=== PATIENT | female | born 1985 | race Caucasian/White ===

== ENCOUNTER 2016-08-09 17:01 | Emergency (ER) | payer OTHER ==
[~2016-08-09] VITALS: Ht 160 cm; Wt 75.7 kg
[~2016-08-09 17:01] MED LIST: ALBU8.5H4 IH; CITA20TA PO; FES300 PO; PREN1TAB47 PO
[2016-08-09 17:03] VITALS: BP 120/83; PULSE 77; RESP 14; O2SAT 100
--- NOTE | 2016-08-09 17:22 | ED.REPORT ---
HPI-Preg Under 20 Weeks Date of Service Aug 09, 2016 ED Provider: Jai Dorman DO A 31 year old female with no pertinent medical history is referred to the ED from her PCP due to heavy vaginal bleeding and a concerning ultrasound. The pt had an ultrasound done today with her PCP, and radiologists reported that they could not exclude the possibility of an ectopic . ED evaluation was therefore recommended. The pt has been experiencing heavy menstrual periods for three to four months, requiring tampon changes every two hours, but this has worsened significantly in the last three days. The bleeding has reached the point that she is now changing her tampon every twenty minutes. Since these heavy periods began, she has also been experiencing lower abdominal pain with palpation. Her periods normally last for two weeks, but have been lasting for three to four weeks since the heavy bleeding began. She has been bleeding continuously since the beginning of 07/2016. Dr. Bhatia recently recommended control use as a method for menstrual control. The pt has been on control for one month without any decrease in her bleeding. Nursing Notes Stated Complaint: REFERRED BY ALIZACIAN Chief Complaint: & Delivery Nursing Notes Reviewed: Yes Allergies: Coded Allergies: No Known Allergies (Verified , 08/09/16) Scheduled Albuterol-Expunged Drug, Do Not Renew! (Albuterol-Expunged Drug, Do Not Renew!) 8.5 Gm Hfa.aer.ad 2 PUFFS IH PRN Citalopram-Expunged Drug, Do Not Renew! (Citalopram-Expunged Drug, Do Not Renew! ) 20 Mg Tablet 20 MG PO DAILY Ferrous Sulfate-Expunged Drug, Do Not Renew! (Feosol-Expunged Drug, Do Not Renew !) 325 Mg Tablet 325 ( PO DAILY Vit/Fe Fumarate/Fa-Expunged Drug, Do (-Expunged Drug, Do Not Renew!) 1 Tab Tablet 1 TAB PO DAILY General Time Seen by Provider: 17:21 Chief Complaint Vaginal bleeding Hx Obtained From: Patient Arrived By: Walk-in Onset Occurred: 4 days ago Symptom Duration: Since onset Recent Healthcare: No recent hospitalization, Recent doctor visit Similar Sx Previous: No Past Medical History Past Medical History none reported Past Surgical History none reported Smoking History Unknown if Ever Smoker Ambulatory Status Independent Review of Systems Constitutional: Denies: Fever Respiratory: Denies: Non-productive cough, Shortness of breath Cardiovascular: Denies: Chest pain GI: Reports: Abdominal pain, Denies: Vomiting Female: Reports: Vaginal bleeding - abnl Musculoskeletal: Denies: Back pain, Neck pain Skin: Denies Rash Complete sys rev & neg: except as marked. Physical Exam Initial Vital Signs Vital Signs (First) Date Time Temp Pulse Resp B/P Pulse Ox O2 Delivery O2 Flow Rate FiO2 08/09/16 17:03 36.3 77 14 120/83 100 Room Air Initial VS: Reviewed General/Constitutional: Awake, Alert Abdomen: Atraumatic, Soft mild tenderness of LLQ to palpation Female Genitourinary: Exam deferred : Exam deferred ENT: Atraumatic, Airway patent, Mucous membranes moist Respiratory / Chest: Atraumatic, Breath sounds NL, Breath sounds = bilat, No respiratory distress Cardiovascular: Heart rate NL, Regular rhythm, Heart sounds NL Back: Atraumatic, Full range of motion Neurologic: Oriented X3, Speech NL, No motor deficits, No sensory deficits Head / Eyes: Atraumatic, Normocephalic, PERRL, EOMI Neck: Atraumatic, Supple, Full range of motion Upper Extremity / MS: Atraumatic, Full range of motion Lower Extremity / Pelvis / MS: Atraumatic, Full range of motion Skin: Atraumatic, Color NL, No rash, Warm, Dry Psychiatric: Affect NL, Mood NL Interpretation & Diagnostics Lab Results Interpretation Result Diagram: 08/09/16 1735 Test 08/09/16 17:31 08/09/16 17:35 Hold Urine Received (Received) White Blood Count 7.4th/mm3 (3.8-10.1) Red Blood Count 3.88mil/mm3 (3.90-5.20) Hemoglobin 9.9g/dL (12.0-15.6) Hematocrit 32.8% (35.0-46.0) Mean Corpuscular Volume 84.5fL (81-100) Mean Corpuscular Hemoglobin 25.5pg (27.0-35.0) Mean Corpuscular Hemoglobin Concent 30.2% (32.0-37.0) Red Cell Distribution Width 22.4% (12.3-15.4) Platelet Count 428bil/L (150-400) HCG Beta Subunit < 0.500mIU/mL Re-Eval/Medical Decision Med Decision/Clinical Course Initial concern for ectopic however the patient has a nondetectable hCG level and the story is not consistent with ectopic whatsoever. She has chronic anemia and is on iron therapy. Vital signs were stable. Patient had 4 months of ongoing menometrorrhagia with minimal left lower quadrant pain and discussed her care with the on-call WATCH COMMANDER who agrees with beginning medroxyprogesterone and close outpatient follow-up. Return and follow-up precautions given. Source of Hx: Old records Re-Evaluation/Progress : Time of Eval: 17:44 Patient Status: Condition improved Re-Evaluation/Progress Note: Pt rechecked, who is comfortable. Treatment plan is further discussed. Consultation : Referral / Consult Name: Lei Melendez MD Call Returned at: 18:36 Note: Agrees with discharge, recommends medroxyprogesterone 10 mg every 8 hours, recommends following up in clinic in the next 2-3 days. Counseled Regarding: Diagnosis, Lab results, Need for follow-up, When/why to return to ED Discharge & Departure Shift Change Sign-Out Patient Care Transferred: Yes Discussed Complaint(s): Yes Laboratory Evaluation: Ordered, not yet done Imaging Studies: Ordered, not yet done Primary Impression: Menometrorrhagia Disposition: Home Discharge Condition All VS Reviewed: Yes Condition: Stable Additional Instructions: Use medroxyprogesterone 10 mg 3 times a day. Call your WATCH COMMANDER in the morning to have a follow-up appointment in the next few days. Return to ER if you develop severe lightheadedness, severe weakness, chest pain trouble breathing or any other concerns. Referrals: Saray Naranjo (PCP) Dustin Bhatia MD Attestation Portions of this note were transcribed by Regina Huggins. I, Dr. Dorman personally performed the history, physical exam and medical decision-making; I reviewed and confirmed the accuracy of the information in the transcribed note. Signed by: Vilma Stephenson, 08/09/16 and 1806. copies to: Dustin Bhatia MD; Saray Naranjo Timothy S DO Aug 09, 2016 17:22 REGINA HUGGINS Aug 09, 2016 17:30 Jai Dorman DO Aug 09, 2016 17:22 REGINA HUGGINS Aug 09, 2016 17:30
[2016-08-09 18:07] LABS: Mean Corpuscular Hemoglobin 25.5 pg (27.0-35.0); Mean Corpuscular Volume 84.5 fL (81-100)
[2016-08-09] MEDS ORDERED: MedroxyPROGESTERone 5 mg Tablet PO ONE (18:40)
[2016-08-09] MEDS ORDERED: MEDR10TA9 PO (18:49)
[2016-08-09] MEDS ORDERED: MedroxyPROGESTERone 150 mg/mL Inj IM ONE (18:50)
[2016-08-09 19:22] VITALS: BP 112/74; PULSE 78; RESP 16; O2SAT 98
[2016-09-14] MEDS ORDERED: LEVO1TAB7 PO (14:59)
[2016-09-14] MEDS ORDERED: ALBU6.7H INH (15:00)
== END 2016-08-09 19:23 | disposition home or self-care (01) ==
LOC: SED 17:01
DX: N92.1 Excessive and frequent menstruation with irregular cycle (principal); D64.9 Anemia, unspecified
CPT/HCPCS: 36415; 81025; 84702; 85027; 96372; 99284; J1050

== ENCOUNTER 2016-09-16 08:45 | Day surgery (SDC) | payer OTHER ==
[2016-09-16] VITALS (11 sets, daily range): BP systolic 108–131; BP diastolic 57–70; PULSE 55–81; RESP 13–18; O2SAT 96–100
[~2016-09-16] VITALS: Ht 162.6 cm; Wt 75.3 kg
[~2016-09-16 08:45] MED LIST changes: +ALBU6.7H INH; -ALBU8.5H4 IH; -CITA20TA PO; -FES300 PO; +LEVO1TAB7 PO; -PREN1TAB47 PO
[2016-09-16] MEDS ORDERED: MetoCLOpramide 5 mg/mL 2 mL Inj ONE (08:46)
[2016-09-16] MEDS ORDERED: fentaNYL-PF 50 mCg/mL 2 mL Inj ONE (08:46)
[2016-09-16] MEDS ORDERED: Glycopyrrolate 0.2 MG/ML 1mL Inj ONE (08:46)
[2016-09-16] MEDS ORDERED: Dexamethasone 4 mg/mL Inj ONE (08:46)
[2016-09-16] MEDS ORDERED: Rocuronium 10 mg/mL 5 mL Inj ONE (08:46)
[2016-09-16] MEDS ORDERED: Neostigmine 1 mg/mL 10 mL Inj ONE (08:46)
[2016-09-16] MEDS ORDERED: Propofol 10,000 mCg/mL 20 mL Inj ONE (08:46)
[2016-09-16] MEDS ORDERED: Ondansetron 2 mg/mL 2 mL Inj ONE (08:46)
[2016-09-16] MEDS: Lactated Ringer's 1,000 ML IV SCH ×3 (08:51→13:56)
[2016-09-16] MEDS ORDERED: MELA5TAB3 SL (08:57)
--- NOTE | 2016-09-16 12:21 | PCM.HPANE ---
Patient Data Surgeon Admitting Provider: Attending Provider:Dustin Bhatia MD Primary Care Physician:Saray Naranjo Other Provider:Marisa Ramosingham Anesthesia Reason for Visit Abnormal Uterine Bleeding, Pelvic Pain Ht/WT & BMI Height (Feet): 5 Height (Inches): 4 Weight (Kilograms): 75.931 Body Mass Index 28.00 Allergies Coded Allergies: No Known Allergies (Verified , 09/14/16) Past Anesthesia History Anesthesia History: Denies:: Anesthesia Reactions, Malignant Hyperthermia Diabetes History Hx Diabetes?: No MRSA MRSA: No Medications Reported Medications Melatonin 5 Mg Tab.subl5 Mg SL 09/16/16 Albuterol Sulfate (Proventil HFA Inhaler)6.7 Gm Hfa.aer.ad1 Puff INH Q4 PRN For Shortness of Breath #1 INHALER Ref 0 09/14/16 Levonorgestrel/Ethinyl Estradiol (Jenniefr)1 Each Tablet1 Tablet PO DAILY #1 PACK 09/14/16 Discontinued Reported Medications Ferrous Sulfate-Expunged Drug, Do Not Renew! (Feosol-Expunged Drug, Do Not Renew !)325 Mg [id number] ( PO DAILY Ref 0 07/02/08 Vit/Fe Fumarate/Fa-Expunged Drug, Do (-Expunged Drug, Do Not Renew!)1 Tab Tablet1 Tab PO DAILY Ref 0 07/02/08 Albuterol-Expunged Drug, Do Not Renew! 8.5 Gm Hfa.aer.ad2 Puffs IH PRN Ref 0 07/02/08 Citalopram-Expunged Drug, Do Not Renew! 20 Mg Arinmo37 Mg PO DAILY Ref 0 07/02/08 Discontinued Scripts Medroxyprogesterone 10 Mg [id number] Mg PO TID #9 TABLET Prov:Jai Dorman DO 08/09/16 History History of ENT Problems?: No HEENT History: Denies:: Abnormal Airway Cataracts Difficult Intubation Dysphagia Glaucoma Hearing Problem Sinus Problem TMJ Denture Type: None Teeth Condition: Within Normal Limits Hx of Heart Problems?: Yes Cardiovascular History: Denies:: Congestive Heart Failure Hypertension Other Cardiac History: HX IRON DEFICIENCY ANEMIA Hx of Respiratory Problem?: Yes Respiratory History: Positive for:: Asthma Use of Inhalers / NEBS Denies:: Tuberculosis Use of C-PAP Machine Hx Neurologic Problems?: Yes Hx of GI Problems?: Yes Other GI Pertinent History: C/OF LLQ PAIN RADIATING TO LT LEG Hx of Problems?: No Female Hx: Denies:: Currently (S/P ENDMETRIAL BX HX OVARIAN CYST) Skin History: Denies:: History Skin Disorders? Pressure Ulcers Hx Musculoskeletal Problems?: No Hx of Psycho/Social Problems?: Yes Psycho Social History: Positive for:: Hx Depression Hx Surgeries?: Yes (PAYTON,ENDOMETRIAL BX) Hx Any Other Health Problems?: Yes Other History: Positive for:: Hospitalization ([facility]) Denies:: Cancer Endocrine Disease Thyroid Disease Hx Diabetes: No Hx Alcohol Use: NoHx Substance Use: No Smoking Status: Unknown if Ever Smoker Have You Smoked inLast 12 mo: No Stop/Bang S-Snoring: Do You Snore Loudly: No T-Tired: feel tired, fatigued: Yes O-Obsered: Observed not breath: No P-Blood Pressure: treated: No B- Body Mass Index > 35 kg/m2: No A- Age over 50: No N- Neck Large Circumference: No G- Gender Male: No ELODIA Total Score: 1 Risk Assessment Category Category 1A: Patient has history of documented sleep apnea, and HAS NOT received any narcotic, sedative or anesthesia administration during this stay. Category 1B: Patient has history of documented sleep apnea, and HAS received any narcotic , sedative or anesthesia administration during this stay Category 2: Patient has SUSPECTED Obstructive Sleep Apnea, and HAS received any narcotic , sedative or anesthesia administration during this stay. Category 3: Patient has SUSPECTED Obstructive Sleep Apnea and HAS NOT received narcotic, sedative or anesthesia administration during this stay. Category 4: Outpatient in Procedural Areas with known sleep apnea or who screen positive for High Risk via the STOP/BANG questionnaire. Exam Exam General Appearance: Alert, Oriented X3, Cooperative, No Acute Distress HEENT/AIRWAY: MP 2 Lungs: Clear to Auscultation Heart: Exam Unremarkable Plan Impression Patient chart reviewed, patient interviewed and anesthestic plan with risks, benefits, and alternatives discussed, and informed consent obtained. ASA Physical Status: ASA1 Normal Healthy Anesthetic Plan: GA Bene/Risks/Altern/Consents: Yes HP Complete Prior to Induction: Yes Ricardo Aden MD September 16, 2016 07:57
[2016-09-16] MEDS ORDERED: Lactated Ringer's 500 ML IV PRN (12:39)
[2016-09-16] MEDS ORDERED: Lactated Ringer's 1,000 ML IV SCH (12:39)
[2016-09-16] MEDS ORDERED: Dexamethasone 4 mg/mL Inj IVPUSH PRN (12:40)
[2016-09-16] MEDS ORDERED: MetoCLOpramide 5 mg/mL 2 mL Inj IVPUSH PRN ×2 (12:40→13:15)
[2016-09-16] MEDS ORDERED: Phenylephrine 10,000 mCg/mL Inj IVPUSH PRN (12:40)
[2016-09-16] MEDS ORDERED: EPHEDrine Sulfate 50 mg/mL Inj IVPUSH PRN (12:40)
[2016-09-16] MEDS ORDERED: Ondansetron 2 mg/mL 2 mL Inj IVPUSH PRN ×2 (12:40→13:15)
--- NOTE | 2016-09-16 13:11 | PCM.ANEP1 ---
Post Anesthesia Phase 1 PACU Phase 1 Assessment Vital Signs Vital Signs Date Time Temp Pulse Resp B/P Pulse Ox O2 Delivery O2 Flow Rate FiO2 09/16/16 13:05 37.2 81 14 131/62 99 Room Air 09/16/16 09:16 36.9 62 18 122/57 100 Room Air Anesthetic Administered: GA Level of Alertness: Sleepy, easy to arouse PROCTOR's with Equal Strength: Yes Pain: Yes Nausea or Vomiting: No Oxygen Delivery: Room Air Lungs: Clear to Auscultation Dermatome Level: Full Sensation Complications: No Ricardo Aden MD September 16, 2016 13:11
[2016-09-16] MEDS ORDERED: HYDROmorphone 1 mg/mL Inj IVPUSH PRN (13:15)
[2016-09-16] MEDS ORDERED: oxyCODONE-Acetamin 5-325 mg Tablet PO PRN (13:15)
[2016-09-16] MEDS ORDERED: diphenhydrAMINE 25 mg Capsule PO PRN (13:15)
[2016-09-16] MEDS ORDERED: Bupivacaine-MPF 0.5% W/EPI 30 mL Inj INFILTRATE ONE (13:16)
--- NOTE | 2016-09-16 13:18 | PCM.DIGYN ---
Surgical Discharge Instruction Dates of Hospitalization Date of Hospital Admission Providers Admitting Physician: Primary Care Physician: Saray Naranjo Attending Physician: Dustin Bhatia MD Diagnosis at Time of Discharge Diagnosis at time of discharge Abnormal Uterine Bleeding (probable adenomyosis) Chronic Pelvic Pain Post-operative diagnosis 1. Abnormal Uterine Bleeding 2. Chronic Pelvic Pain 3. Probable Adenomyosis Problems: Diet Discharge Diet: No restrictions Activity Discharge Activity-General: Try not to overdue, Be up and about, No lifting > 10 pounds for 4-6 weeks, No driving while taking narcotic Dressing and Incisional Care Dressing Care: Remove outer dressing after 24 hrs Hygiene: May shower, Wash incision with soap & water, DO NOT soak incision under water, NO bathtub, hot tub or whirlpool (for two weeks) Follow Up Plan Follow-up Provider (F9): Dustin Bhatia MD Follow-up appointment: Weeks (2) Call your provider for: Fever, Chills, Shortness of breath, Heavy vaginal bleeding, Increasing pain Dustin Bhatia MD September 16, 2016 13:18
[2016-09-16] MEDS: fentaNYL-PF 50 mCg/mL 2 mL Inj IVPUSH PRN ×2 (13:36→13:48)
[2016-09-16] MEDS: HYDROmorphone 1 mg/mL Inj IVPUSH PRN ×2 (14:39→14:53)
--- NOTE | 2016-09-17 00:14 | OP ---
[address] [address] OPERATIVE REPORT PATIENT: ANNELISE MAYER : 1985 MR#: [id number] ADMIT: 09/16/2016 JOB ID: [id number] DATE OF SURGERY: 09/16/2016 PREOPERATIVE DIAGNOSIS(ES): 1. Abnormal uterine bleeding. 2. Chronic pelvic pain. POSTOPERATIVE DIAGNOSIS(ES): 1. Abnormal uterine bleeding. 2. Chronic pelvic pain. PROCEDURE PERFORMED: 1. Diagnostic laparoscopy. 2. Hysteroscopy, dilatation and curettage, with MyoSure device. SURGEON: Dustin Bhatia MD. SLEEVE TURNER: Noemi Serrano MD. Dr. Serrano was necessary for this procedure to help with exposure. ANESTHESIA: General. ESTIMATED BLOOD LOSS: 0 mL. COMPLICATIONS: None. PATHOLOGY SENT: Endometrial curettings. FINDINGS AT TIME OF SURGERY: Intraoperative findings showing some dense omental adhesions to the midline of the abdomen. The uterus appeared slightly enlarged and boggy in shape. The ovaries were normal in appearance. The fallopian tubes were normal in appearance. There was no evidence of any endometriosis. There were no adhesions or scar tissue in the posterior cul-de-sac. The anterior cul-de-sac was normal. Survey of the upper abdomen was normal. The appendix was also normal in appearance. PROCEDURE: The patient was taken to the operating room, where her general anesthesia was obtained without difficulty. She was placed in a lithotomy position in the [facility] and prepared and draped in the normal sterile fashion. A diagnostic laparoscopy was performed. The umbilicus was injected with 5 mL of 0.5% Marcaine with epinephrine. A Veress needle was inserted through the base of the umbilicus into the peritoneal cavity. The needle aspirate test was negative. Opening pressures were low and a pneumoperitoneum was obtained with CO2 gas to a pressure of 15 mmHg. At this point, the Veress needle was removed. A 5 mm skin incision was made at the base of the umbilicus and a 5 mm blunt trocar inserted using the Visiport function of this device. Intraperitoneal placement was again confirmed with the laparoscope. The omental adhesion was appreciated in the midline. This construed our visualization. A left lower quadrant port site was marked off, injected with 0.25% Marcaine with epinephrine. A 5 mm skin incision was made with a scalpel and a 5 mm blunt trocar was inserted under direct visualization. The patient was placed in Trendelenburg and the Thunderbeat cautery device was used to transect and ligate the omental adhesions. Once the adhesions were taken down, again the survey of the abdomen was noted as above. All instruments were then removed from the patient's peritoneal cavity. The pneumoperitoneum was released. The skin incisions were reapproximated with 4-0 Monocryl in a subcuticular fashion and Dermabond applied. A hysteroscopy D and C was then performed using the MyoSure scope. A speculum was inserted into the patient's vagina. The cervix was identified, grasped with a single-tooth tenaculum, and dilated with a [employer] cervical dilator. The MyoSure device was then inserted. The endometrial cavity appeared somewhat shaggy in appearance, but overall there was no evidence of any distinctive polyp or fibroid. The cornual regions were normal in appearance. The MyoSure device was then inserted and endometrial curettings were obtained. All instruments were then removed from the patient's vagina. All lap, instrument, and needle counts were correct x2 at the end of the procedure and patient was taken to recovery room awake and in good condition. DEENA
--- NOTE | 2016-09-19 16:10 | PATH ---
SURGICAL PATHOLOGY Attending Physician:Dustin Bhatia, CASE STATUS: Signed Out PATIENT NAME: ANNELISE MAYER PID: [id number] : 1985 DATE COLLECTED:09/16/2016 00:00 SPECIMEN: Endometrium, Curettage CLINICAL HISTORY: ABNORMAL UTERINE BLEEDING, PELVIC PAIN 1). ENDOMETRIAL CURETTINGS FINAL DIAGNOSIS: 1.ENDOMETRIAL CURETTINGS: TISSUE FRAGMENTS CONSISTENT WITH BENIGN ENDOMETRIAL POLYP. PROLIFERATIVE ENDOMETRIUM WITH DECIDUOID STROMAL CHANGES SUGGESTING EXOGENOUS HORMONE EFFECT. NEGATIVE FOR ATYPIA AND MALIGNANCY. ICD10 CODE N84.1 GROSS DESCRIPTION: The specimen is received in one formalin filled container labeled with the patient's name, sublabeled "endometrial curettings" and consists of approximately a 1.25 cc aggregate of tissue and mucoid material which is filtered and entirely submitted in one cassette. 09/17/2016 DAC MICRO DESCRIPTION: See diagnosis. ICD-9 CODES: CPT CODES: 1: 11579 Electronically Signed Out Pritesh Ascencio MD [facility] [address], [place] [address] Technical component performed at [facility], [address] [place] [address] Ave[address], [place], [address]
== END 2016-09-16 23:59 | disposition home or self-care (01) ==
LOC: SAS 08:45
PROVIDERS: ATTEND Obstetrics & Gynecology
PROC: 0WJJ4ZZ Inspection of Pelvic Cavity, Percutaneous Endoscopic Approach (ICD-10-PCS; principal; 2016-09-16 10:45)
PROC: 0UDB8ZX Extraction of Endometrium, Via Natural or Artificial Opening Endoscopic, Diagnostic (ICD-10-PCS; 2016-09-16 10:45)
DX: N93.9 Abnormal uterine and vaginal bleeding, unspecified (principal); R10.2 Pelvic and perineal pain; G89.29 Other chronic pain
CPT/HCPCS: 49320; 58558; 88305; J1100; J1170; J1885; J2405; J2710; J2765; J3010; J7120